=== PATIENT | female | born 1940 | race Caucasian/White ===

== ENCOUNTER 2016-08-03 11:27 | Observation (INO) | payer MEDICARE, BC ==
[2016-08-03 13:27] LABS: Hematocrit 39 % (35-47); Hemoglobin 12.9 g/dl (12.0-16.0); Mean Corpuscular HGB Conc 33 g/dl (31-36); Mean Corpuscular Hemoglobin 31 pg (27-31); Mean Corpuscular Volume 94 fL (80-97); Mean Platelet Volume 8 um3 (7.4-10.4); Red Blood Count 4.21 10^6/ul (4.0-5.4); Red Cell Distribution Width 15 % (10.5-15); White Blood Count 3.5 10^3/ul (3.5-10.8)
[2016-08-03 13:39] LABS: Albumin 3.6 g/dL (3.2-5.2); Calcium 8.4 mg/dL (8.6-10.3); EGFR African American 88.9 (>60); EGFR Non-African American 69.1 (>60); Globulin 2.5 g/dL (2-4); Magnesium 2.1 mg/dL (1.9-2.7); Potassium 4.3 mmol/L (3.5-5.0); Total Bilirubin 0.5 mg/dL (0.2-1.0); Total Protein 6.1 g/dL (6.4-8.9)
[2016-08-03 14:09] LABS: TSH (Thyroid Stimulating Horm) 2.35 mcIU/mL (0.34-5.60)
--- NOTE | 2016-08-03 14:35 | RAD ---
Indication: Syncope. Comparison: None. Technique: Sitting AP and lateral chest views. Report: Accounting for superimposed soft tissues and normal bronchovascular markings the lungs and pleural spaces are clear. Negative for pneumothorax. Cardiomegaly. Unremarkable central pulmonary vasculature and mediastinal contours. IMPRESSION: Cardiomegaly without evidence for pulmonary edema. No acute cardiopulmonary process evident.
[2016-08-03] MEDS ORDERED: Acetaminophen TAB* 325 MG PO PRN (16:35)
[2016-08-03 16:40] LABS: Urine Bilirubin Negative (Negative); Urine Glucose Negative (Negative); Urine Nitrite Negative (Negative)
[2016-08-03] MEDS ORDERED: Flecainide TAB* 100 MG PO SCH (18:00)
[2016-08-03] MEDS ORDERED: Latanoprost 0.005%* 2.5 ml BTL BOTH EYES SCH (18:00)
--- NOTE | 2016-08-03 18:49 | ED ---
Danielito Montaño SooYoung, scribed for Paulo Bernal MD on 08/03/16 at 1158 . Syncope/Near Syncope - HPI Summary HPI Summary: A 76 y/o F [facility] presents to ED after syncopal episode onset [employer]. Episode lasted approx. 1-2 minutes. Pt was singing at [employer], and she became diaphoretic. She sat down in the pew, and then passed out. When she came to she was dazed and her eyes were rolling back, according to her , She was laid down, and her pulse was slow. Denies pain, nausea, fever, pedal edema, sx prior to going to [employer]. Pt felt OK in the ambulance, states she feels fine in ED. She has had a productive cough and cold for the past five days. She is a non-smoker. Recent air travel from [place] this past week. Her notes a baseline low BP. Pert PMHx: afib. Is not on a blood thinner. - History Of Current Complaint Time Seen by Provider: 08/03/16 11:34 Hx Obtained From: Patient, Family/Criminal Judge - Onset/Duration: Sudden Onset, Lasting Minutes, Resolved Context: Witnessed, Loss Of Consciousness Alleviating Factor(s): Position Change - laying supine - Allergies/Home Medications Allergies/Adverse Reactions: Allergies Allergy/AdvReac Type Severity Reaction Status Date / Time No Known Allergies Allergy Verified 05/25/13 06:54 PMH/Surg Hx/FS Hx/Imm Hx Previously Healthy: Yes Cardiovascular History: Reports: Other Cardiovascular Problems/Disorders - ATRIAL FIB -ABLATION 10 YEARS AGO Sensory History: Reports: Hx Cataracts - RIGHT EYE, Hx Contacts or Glasses - GLASSES Denies: Hx Hearing Aid Opthamlomology History: Reports: Hx Cataracts - RIGHT EYE, Hx Contacts or Glasses - GLASSES - Cancer History Hx Chemotherapy: No Hx Radiation Therapy: No - Surgical History Surgery Procedure, Year, and Place: CATAR[place] [facility] [place]. [place]CT IN BREAST [place] [facility] [place] Hx Anesthesia Reactions: No Infectious Disease History: Denies: Traveled Outside the [place] in Last 30 Days - Family History Known Family History: Positive: Other - pos: Breast CA - Social History Occupation: Retired Lives: With Family Hx Substance Use: No Substance Use Type: Reports: None Hx Tobacco Use: No Review of Systems Positive: Skin Diaphoresis. Negative: Fever Positive: Other - pos: bradycardia Negative: Nausea Negative: Edema Positive: Syncope - 1-2 minutes All Other Systems Reviewed And Are Negative: Yes Physical Exam Triage Information Reviewed: Yes Vital Signs On Initial Exam: Initial Vitals BP 111/52 08/03/16 11:39 Vital Signs Reviewed: Yes Appearance: Positive: Well-Appearing, No Pain Distress Skin: Positive: Warm, Skin Color Reflects Adequate Perfusion, Dry Head/Face: Positive: Normal Head/Face Inspection Eyes: Positive: Normal ENT: Positive: Normal ENT inspection Neck: Positive: Supple, Nontender Respiratory/Lung Sounds: Positive: Breath Sounds Present, Other - pos: CRACKLES IN R LOWER LUNG FIELD Cardiovascular: Positive: Bradycardia Abdomen Description: Positive: Nontender, Soft Bowel Sounds: Positive: Present Musculoskeletal: Positive: Normal Neurological: Positive: Normal Psychiatric: Positive: Normal, Affect/Mood Appropriate Diagnostics - Vital Signs Vital Signs Temp Pulse Resp BP Pulse Ox 08/03/16 15:30 49 11 120/55 98 08/03/16 15:00 47 19 120/64 99 08/03/16 14:30 51 18 129/61 97 08/03/16 14:21 115/60 08/03/16 14:10 50 15 97 08/03/16 14:00 48 17 97 08/03/16 13:00 46 18 96 08/03/16 12:00 51 19 98/56 96 08/03/16 11:41 51 98 08/03/16 11:40 97 F 53 16 111/52 97 08/03/16 11:39 111/52 - Laboratory Lab Results: Lab Results 08/03/16 08/03/16 08/03/16 Range/Units 13:15 13:15 13:15 WBC 3.5 (3.5-10.8) 10^3/ul RBC 4.21 (4.0-5.4) 10^6/ul Hgb 12.9 (12.0-16.0) g/dl Hct 39 (35-47) % MCV 94 (80-97) fL MCH 31 (27-31) pg MCHC 33 (31-36) g/dl RDW 15 (10.5-15) % Plt Count 171 (150-450) 10^3/ul MPV 8 (7.4-10.4) um3 Neut % (Auto) 56.2 (38-83) % Lymph % (Auto) 32.4 (25-47) % [place] % (Auto) 10.4 H (1-9) % Eos % (Auto) 0.6 (0-6) % Baso % (Auto) 0.4 (0-2) % Absolute Neuts (auto) 2.0 (1.5-7.7) 10^3/ul Absolute Lymphs (auto) 1.1 (1.0-4.8) 10^3/ul Absolute Monos (auto) 0.4 (0-0.8) 10^3/ul Absolute Eos (auto) 0 (0-0.6) 10^3/ul Absolute Basos (auto) 0 (0-0.2) 10^3/ul Absolute Nucleated RBC 0.01 10^3/ul Nucleated RBC % 0.2 Sodium 136 (133-145) mmol/L Potassium 4.3 (3.5-5.0) mmol/L Chloride 105 (101-111) mmol/L Carbon Dioxide 24 (22-32) mmol/L Anion Gap 7 (2-11) mmol/L BUN 17 (6-24) mg/dL Creatinine 0.81 (0.51-0.95) mg/dL Est GFR ( Amer) 88.9 (>60) Est GFR (Non-Af Amer) 69.1 (>60) BUN/Creatinine Ratio 21.0 H (8-20) Glucose 95 (70-100) mg/dL Lactic Acid 0.9 (0.5-2.0) mmol/L Calcium 8.4 L (8.6-10.3) mg/dL Magnesium 2.1 (1.9-2.7) mg/dL Total Bilirubin 0.50 (0.2-1.0) mg/dL AST 30 (13-39) U/L ALT 23 (7-52) U/L Alkaline Phosphatase 66 (34-104) U/L Troponin I 0.00 (<0.04) ng/mL Total Protein 6.1 L (6.4-8.9) g/dL Albumin 3.6 (3.2-5.2) g/dL Globulin 2.5 (2-4) g/dL Albumin/Globulin Ratio 1.4 (1-3) TSH 2.35 (0.34-5.60) mcIU/mL Result Diagrams: 08/03/16 13:15 08/03/16 13:15 Lab Statement: Any lab studies that have been ordered have been reviewed, and results considered in the medical decision making process. - Radiology CXR Xray Interpretation: No Acute Changes - IMPRESSION: Cardiomegaly without evidence for pulmonary edema. No acute cardiopulmonary process evident. Radiology Interpretation Completed By: Radiologist - EKG 1203 EKG Rhythm: Sinus Bradycardia Re-Evaluation - Re-Evaluation 1 Re-Evaluation Time: 14:59 Change: Improved Comment: Discussing results with pt. Course/Dx Course Of Treatment: Ms. Waldron presented after a syncopal episode while singing in the choir today that sounded like a vagal episode to me. He W/U was negative however, she remained bradycardic here and is on flecanide so I consulted with Dr. Arrieta who recommende OBV. - Diagnoses Provider Diagnoses: syncope - Physician Notifications Discussed Care Of Patient With: 1512: Dr. Arrieta, cardiology, recommends pt be admitted. 1517: Dr. Serna, hospitalist, will admit Instructed by Provider To: Admit As Inpatient - Critical Care Time Critical Care Time: 30-74 min Discharge - Discharge Plan Condition: Stable Disposition: ADMITTED TO [facility] The documentation as recorded by the Danielito evans SooYoung accurately reflects the service I personally performed and the decisions made by me, Paulo Bernal MD.
[2016-08-03] MEDS: Heparin VIAL(*) 5000 UNITS/ML VIAL (FIVE THOUSAND) SUBCUT SCH (23:27)
[2016-08-03] MEDS: NS 0.9% 1000 ML* 1,000 ML IV SCH (23:27)
--- NOTE | 2016-08-04 01:45 | HP ---
HOSPITAL MEDICINE HISTORY AND PHYSICAL: DATE OF ADMISSION: 08/03/16 PRIMARY CARE PHYSICIAN: Dr. Darling ATTENDING PHYSICIAN: Dr. Yolanda Serna *(dictation provided by Louisa Gruber NP) CHIEF COMPLAINT: Syncope. HISTORY OF PRESENT ILLNESS: Ms. Waldron is a 76-year-old female with a past medical history of atrial fibrillation, on flecainide, who presents to the hospital today after a syncopal episode while at [employer]. Ms. Waldorn states that she returned from [place] via plane on late Thursday. She denies any pain to her calves or swelling or redness there. She stated that shortly after returning home, she developed a cold. She had itchy watery eyes. She has congestion, runny nose. No fevers, no chills, no nausea, no vomiting, no abdominal pain. Today, she states that she had a normal breakfast. While singing in [employer], she suddenly felt very sweaty and she felt that her vision was going foggy. She sat down on the bench and then became unconscious. She awoke with the members of the [employer] standing around her. She sat up and states that she felt very tired. She does remember EMS coming and bringing her to the hospital. In the emergency room, Ms. Waldron has some bradycardia, but she is in a sinus rhythm. Her vital signs are otherwise stable. Her labs are unremarkable. PAST MEDICAL HISTORY: 1. Atrial fibrillation with ablation x3. 2. History of breast duct removal, benign. 3. Cataract surgery bilaterally. MEDICATIONS: 1. [place]-3 fatty acids 1000 mg p.o. q.a.m. 2. Aspirin 81 mg p.o. daily. 3. Flecainide 50 mg p.o. q.p.m. and 100 mg p.o. q.a.m. 4. Latanoprost 0.005% one drop both eyes q.p.m. ALLERGIES: No known drug allergies. FAMILY HISTORY: The patient reports her mom related to leukemia at 86 and dad of heart problems at 84. SOCIAL HISTORY: No report of tobacco or drug use. The patient drinks 1 glass of wine on a daily basis. She states that her , David, will be the healthcare proxy. REVIEW OF SYSTEMS: A 14-point review of systems was completed with Ms. Waldron and all those not mentioned above were negative. PHYSICAL EXAMINATION GENERAL: Ms. Waldron is lying in the bed. She is in no acute distress. She is calm and cooperative to my examination. VITAL SIGNS: Temperature 97, heart rate 49, respiratory rate 11, O2 saturation 98% on room air, and blood pressure 121/55. LUNGS: Clear to auscultation bilaterally with no accessory muscle use and good aeration. HEART: S1, S2. No murmur, rub, or gallop, and regular. ABDOMEN: Soft, nontender with bowel sounds positive x4. EXTREMITIES: No cyanosis or edema. NEURO: She is alert, she is oriented x3, she moves all extremities equally. There is no facial asymmetry or focal weakness. Extraocular movements are intact. SKIN: Intact. DIAGNOSTIC STUDIES/LAB DATA: WBC 3.5, hemoglobin 12.9, hematocrit 39, and platelet count 171. Sodium 136, potassium 4.3, chloride 105, serum bicarbonate 24, BUN 17, creatinine 0.81, glucose 95, magnesium 2.1. Urine shows no evidence of infection. Chest x-ray shows no acute process. EKG shows sinus rhythm with a heart rate of 50. ASSESSMENT AND PLAN: Ms. Waldron is a 76-year-old female with a past medical history significant for atrial fibrillation, on flecainide, who presents today to the hospital with complaint of syncope while at [employer] today. Our recommendations are for observation in the hospital for the followin. Syncope: The patient does report a cold which is described as a typical rhinovirus. She describes a vaso vagal-type syncopal episode with prodrome of sweating and blurry vision. She had no altered mental status when she awoke suggestive of a postictal state. I suspect dehydration in the setting of viral illness, but we will rule her out for an arrhythmia. I note that she is mildly bradycardic. Plan for 1 liter of IVF overnight and check of orthostatic vitals. Flecainide itself does not cause bradycardia, and it is actually more likely to cause tachycardia. Plan for telemetry monitoring overnight. The patient has had multiple echocardiograms in her life. Based on her history of atrial fibrillation, I do not think an additional echo today would be revealing. 2. Atrial fibrillation: Continue flecainide. 3. DVT prophylaxis: Heparin subcu. 4. Disposition: To telemetry floor. TIME SPENT: Approximately 60 minutes was spent in the admission of this patient , more than half of the time was spent with the patient at the bedside reviewing the events leading up to this hospitalization, performing the physical examination, and reviewing my plan of care. LOUISA GRUBER NP CC: Dr. Darling* [id number]/[facility] #: [id number] ANGELICA
[2016-08-04] MEDS: Heparin VIAL(*) 5000 UNITS/ML VIAL (FIVE THOUSAND) SUBCUT SCH ×2 (06:01→14:44)
[2016-08-04] MEDS ORDERED: Aspirin EC Low Dose* 81 MG TAB.EC PO SCH (09:00)
[2016-08-04] MEDS ORDERED: Flecainide TAB* 100 MG PO SCH (09:00)
[2016-08-04] MEDS: NS 0.9% 1000 ML* 1,000 ML IV SCH (09:12)
--- NOTE | 2016-08-04 10:12 | CONS ---
CARDIOLOGY CONSULTATION: DATE OF CONSULT: 08/04/16 INDICATION FOR CONSULTATION: Syncope. HISTORY OF PRESENT ILLNESS: The patient is a 76-year-old woman who is known to me from my outpatient clinic who has a history of atrial fibrillation flutter. In speaking with the patient, the patient states that she had come back from [place] last week and started developing upper respiratory infection symptoms late last week; she had a cough, runny nose. She denied any fevers or chills. The patient was in [employer] yesterday; the patient was singing in a choir. She sat down because she was feeling slightly lightheaded, and then woke up on the floor with people around her. She denied any prodrome other than feeling lightheaded. She denied any palpitations. She denied any heart racing. She denied any chest pain. The patient was brought to the emergency room. In the emergency room, the patient was in sinus bradycardia at 50 beats per minute overnight on telemetry; she had no arrhythmias except for her sinus bradycardia. PAST MEDICAL HISTORY: Significant for atrial fibrillation. She has had an A- flutter ablation in the past. She has a history of benign cystic breast disease. Cataract surgery bilaterally. OUTPATIENT MEDICATIONS: 1. Flecainide 100 mg in the morning, 50 mg in the evening. 2. Aspirin 81 mg a day. 3. Multiple eye drops. 4. [place]-3 fatty acids. ALLERGIES: No known drug allergies. FAMILY HISTORY: Mother at 86 of leukemia. SOCIAL HISTORY: She is . She denies tobacco or alcohol use. She is retired. REVIEW OF SYSTEMS: Negative for fevers and chills. Negative for changes in bowel or bladder habits. Negative in change in weight. PHYSICAL EXAMINATION: Height is 5 feet 9 inches, weight is 190 pounds. Heart rate 50, blood pressure 132/63, temperature 97.4, oxygen saturation 98% on room air. Sclerae anicteric. Oropharynx is pink without erythema. Carotids are 2+ without bruits. JVD is normal. Thyroid is normal. Cardiac Exam: S1, S2 without any murmurs, rubs, or gallops. Lungs are clear to auscultation bilaterally. There is no dullness to percussion. Abdomen is soft, nontender, nondistended with normoactive bowel sounds. Extremities show no edema. She has 2+ pulses throughout. The patient is awake, alert and oriented. She moves all 4 extremities equally. DIAGNOSTIC STUDIES/LAB DATA: CBC within normal limits. Chemistry is within normal limits. TSH 2.3. Troponins are negative x2. EKG demonstrates sinus bradycardia, otherwise unremarkable. IMPRESSION: This is a 76-year-old female with a history of atrial arrhythmias who was admitted to the hospital with a syncopal episode. My question is whether she had just a vasovagal syncope from her viral syndrome and hypotension , or did she have some sort of arrhythmia. The patient does have sinus bradycardia at rest. She could have had an episode of bradycardia that caused her syncopal episode. She also could have had a ventricular arrhythmia associated with her flecainide , although she is at low risk for antiarrhythmic-induced arrhythmias. For now my recommendation is that the patient undergo an echocardiogram just to revaluate LV function in light of her flecainide therapy. I have also recommended that the patient have an implantable event monitor for long- term monitoring of her heart rhythm given the fact that she has sinus bradycardia at rest and is on flecainide. I will see the patient in followup as an outpatient. CC: Dr. [place], [place].* [id number]/[facility] #: [id number] MTDConsuelo
--- NOTE | 2016-08-04 11:09 | ECHO ---
Patient: GA AGARWAL [facility] Rec#: [id number] : 1940 Date: 08/04/2016 Age: 76y Height: 175.26 cm / 69.0 in Weight: 86.18 kg / 189.9 lbs Sex: F BSA: 2.02 Room#: 447 Admit Date#: 08/03/2016 Type: Inpatient Referring: Benito Farrar MD Reading: Benito Farrar MD Crew Boat Operator: Ara Pino FREDIS CC: Mc Valadez MD Transthoracic Echocardiogram Indication: Syncope BP: 146/69 HR: 52 Rhythm: Bradycardia Findings History: A-fib with Flecanide rx, syncope. Technical Comments: The study quality is good. Completed at 1055. Left Ventricle: The left ventricular chamber size is normal. Moderate concentric left ventricular hypertrophy is observed. Global left ventricular wall motion and contractility are within normal limits. There is normal left ventricular systolic function. The estimated ejection fraction is 50-55%. Normal left ventricular diastolic filling is observed. Left Atrium: The left atrium is normal in size. Right Ventricle: Moderator Band present. The right ventricular cavity size is normal. The right ventricular global systolic function is normal. Right Atrium: The right atrial cavity size is normal. Aortic Valve: The aortic valve is trileaflet. The aortic valve leaflets are mildly thickened. There is mild to moderate aortic regurgitation. There is no evidence of aortic stenosis. Mitral Valve: The mitral valve leaflets are mildly thickened. There is mild mitral regurgitation. There is no evidence of mitral stenosis. Tricuspid Valve: The tricuspid valve leaflets are normal. There is trace to mild tricuspid regurgitation. No pulmonary hypertension is noted. There is no tricuspid stenosis. Pulmonic Valve: The pulmonic valve appears normal. There is mild to moderate pulmonic regurgitation. There is no pulmonic stenosis. Pericardium: The pericardium appears normal. A pericardial fat pad is visualized. Aorta: There is no dilatation of the ascending aorta. There is no dilatation of the aortic arch. There is no dilation of the aortic root. Pulmonary Artery: The main pulmonary artery appears normal. Venous: The inferior vena cava appears normal in size. There is a greater than 50% respiratory change in the inferior vena cava dimension. Summary: There are no significant changes when compared to the previous study done on 03/05/15 Conclusions Moderate concentric left ventricular hypertrophy is observed. Global left ventricular wall motion and contractility are within normal limits. There is normal left ventricular systolic function. The estimated ejection fraction is 50-55%. The right ventricular global systolic function is normal. There is mild to moderate aortic regurgitation. There is mild mitral regurgitation. There is trace to mild tricuspid regurgitation. No pulmonary hypertension is noted. The pericardium appears normal. There are no significant changes when compared to the previous study done on 03/05/15 Measurements Name Value Normal Range RVIDd (AP) 2D 3.1 cm (0.9 - 2.6) RVDdMajor (2D) 3.7 cm (2.2 - 4.4) RAd ISD 4CH 5.8 cm (3.4 - 4.9) RA (A4C)W 4.3 cm (2.9 - 4.6) IVSd (2D) 1.4 cm (0.6 - 1) LVPWd (2D) 1.2 cm (0.6 - 1) LVIDd (2D) 3.9 cm (3.6 - 5.4) LVIDs (2D) 2.8 cm - LV FS (2D) 28 % (25 - 45) Aortic Annulus 1.8 cm (1.4 - 2.6) Ao root diameter (2D) 3.1 cm (2.1 - 3.5) Ascending Ao 2.9 cm (2.1 - 3.4) Aortic arch 2.4 cm (1.8 - 3.4) Descending Ao 0.4 cm - LA dimension (AP) 2D 3.1 cm (2.3 - 3.8) LAd ISD 4CH 6.1 cm (2.9 - 5.3) LA ISD 4CH W 4.9 cm (2.5 - 4.5) Name Value Normal Range LA ESV SP 4CH (A/L) 64 ml - LA ESV SP 2CH (A/L) 66 ml - LA ESV BP (A/L) 69 ml - LA ESV BP (A/L) index 34.12 ml/m2 - LA ESV SP 4CH (MOD) 57 ml - LA ESV SP 2CH (MOD) 62 ml - Name Value Normal Range MV E-wave Vmax 0.8 m/sec - MV deceleration time 206 msec - MV A-wave Vmax 0.6 m/sec - MV E:A ratio 1.32 ratio - LV septal e' Vmax 0.08 m/sec - LV lateral e' Vmax 0.09 m/sec - LV E:e' septal ratio 10 ratio - LV E:e' lateral ratio 8.89 ratio - Name Value Normal Range AV Vmax 1.5 m/sec - AV VTI 36.3 cm - AV peak gradient 8.92 mmHg - AV mean gradient 3.8 mmHg - LVOT Vmax 1 m/sec - LVOT VTI 24 cm - LVOT peak gradient 4 mmHg - LVOT mean gradient 1.74 mmHg - AR PHT 669 msec - AR peak gradient 77.53 mmHg - Name Value Normal Range TR Vmax 2.3 m/sec - TR peak gradient 21 mmHg - RAP 3 mmHg - RVSP 24 mmHg - IVC diameter 1.7 cm - Name Value Normal Range PV Vmax 0.8 m/sec - PV peak gradient 2.39 mmHg -
[2016-08-04] MEDS ORDERED: Lidocaine 1% INJ* 10 MG/ML 30 ML SDV ONE (11:20)
[2016-08-04] MEDS ORDERED: Cephalexin CAP* 500 MG PO ONE (11:22)
--- NOTE | 2016-08-04 12:39 | PN ---
Subjective Date of Service: 08/04/16 Interval History: Patient seen and examined at bedside. She denies any further syncopal events, CP , SOB, abd pain, n/v. She has ambulated this morning and felt steady. Her is at bedside. No acute concerns. Patient was seen in consult by her primary instrument designer, Dr. Farrar, who has also inserted an implantable event monitor; he will see her in follow-up next week. Telemetry: Sinus bradycardia with PVCs 50s-60s Family History: Unchanged from Admission Social History: Unchanged from Admission Past Medical History: Unchanged from Admission Objective Active Medications: Acetaminophen (Tylenol Tab*) 650 mg PO Q6H PRN PRN Reason: PAIN Aspirin (Aspirin Ec Low Dose*) 81 mg PO DAILY [facility] Last Admin: 08/04/16 09:13 Dose: 81 mg Flecainide Acetate (Tambocor Tab*) 50 mg PO QPM [facility] Last Admin: 08/03/16 18:50 Dose: 50 mg Flecainide Acetate (Tambocor Tab*) 100 mg PO QAM [facility] Last Admin: 08/04/16 09:13 Dose: 100 mg Heparin Sodium (Porcine) (Heparin Vial(*)) 5,000 units SUBCUT Q8HR [facility] Last Admin: 08/04/16 06:01 Dose: 5,000 units Sodium Chloride (Ns 0.9% 1000 Ml*) 1,000 mls @ 125 mls/hr IV PER RATE [facility] Last Admin: 08/04/16 09:12 Dose: 125 mls/hr Latanoprost (Xalatan 0.005%*) 1 drop BOTH EYES QPM [facility] Last Admin: 08/03/16 18:50 Dose: 1 drop Vital Signs 08/03/16 08/03/16 08/03/16 15:57 16:09 16:12 Temperature Pulse Rate 50 51 Respiratory 14 15 Rate Blood Pressure 132/54 (mmHg) O2 Sat by Pulse 97 97 Oximetry 08/03/16 08/03/16 08/03/16 16:30 17:00 17:59 Temperature 97.4 F Pulse Rate 52 49 50 Respiratory 18 11 16 Rate Blood Pressure 121/55 132/63 (mmHg) O2 Sat by Pulse 98 98 98 Oximetry 08/03/16 08/04/16 08/04/16 19:25 00:19 03:50 Temperature 98.0 F 98.6 F Pulse Rate 53 50 54 Respiratory 18 Rate Blood Pressure 121/56 118/55 123/62 (mmHg) O2 Sat by Pulse 99 96 96 Oximetry 08/04/16 07:20 Temperature 98.3 F Pulse Rate 51 Respiratory 16 Rate Blood Pressure 146/69 (mmHg) O2 Sat by Pulse 94 Oximetry Oxygen Devices in Use Now: None Appearance: Female patient, sitting up in bed, in NAD Eyes: PERRLA Ears/Nose/Mouth/Throat: Clear Oropharnyx, Mucous Membranes Moist Neck: NL Appearance and Movements; NL JVP Respiratory: Symmetrical Chest Expansion and Respiratory Effort, Clear to Auscultation Cardiovascular: NL Sounds; No Murmurs; No JVD, RRR Abdominal: NL Sounds; No Tenderness; No Distention Extremities: No Edema Skin: No Rash or Ulcers Neurological: Alert and Oriented x 3 Lines/Tubes/Other Access: Clean, Dry and Intact Peripheral IV Nutrition: Taking PO's Result Diagrams: 08/03/16 13:15 08/03/16 13:15 Additional Lab and Data: Lab Results 08/03/16 08/03/16 08/03/16 Range/Units 13:15 13:15 13:15 WBC 3.5 (3.5-10.8) 10^3/ul RBC 4.21 (4.0-5.4) 10^6/ul Hgb 12.9 (12.0-16.0) g/dl Hct 39 (35-47) % MCV 94 (80-97) fL MCH 31 (27-31) pg MCHC 33 (31-36) g/dl RDW 15 (10.5-15) % Plt Count 171 (150-450) 10^3/ul MPV 8 (7.4-10.4) um3 Neut % (Auto) 56.2 (38-83) % Lymph % (Auto) 32.4 (25-47) % Beltrami % (Auto) 10.4 H (1-9) % Eos % (Auto) 0.6 (0-6) % Baso % (Auto) 0.4 (0-2) % Absolute Neuts (auto) 2.0 (1.5-7.7) 10^3/ul Absolute Lymphs (auto) 1.1 (1.0-4.8) 10^3/ul Absolute Monos (auto) 0.4 (0-0.8) 10^3/ul Absolute Eos (auto) 0 (0-0.6) 10^3/ul Absolute Basos (auto) 0 (0-0.2) 10^3/ul Absolute Nucleated RBC 0.01 10^3/ul Nucleated RBC % 0.2 Sodium 136 (133-145) mmol/L Potassium 4.3 (3.5-5.0) mmol/L Chloride 105 (101-111) mmol/L Carbon Dioxide 24 (22-32) mmol/L Anion Gap 7 (2-11) mmol/L BUN 17 (6-24) mg/dL Creatinine 0.81 (0.51-0.95) mg/dL Est GFR ( Amer) 88.9 (>60) Est GFR (Non-Af Amer) 69.1 (>60) BUN/Creatinine Ratio 21.0 H (8-20) Glucose 95 (70-100) mg/dL Lactic Acid 0.9 (0.5-2.0) mmol/L Calcium 8.4 L (8.6-10.3) mg/dL Magnesium 2.1 (1.9-2.7) mg/dL Total Bilirubin 0.50 (0.2-1.0) mg/dL AST 30 (13-39) U/L ALT 23 (7-52) U/L Alkaline Phosphatase 66 (34-104) U/L Troponin I 0.00 (<0.04) ng/mL Total Protein 6.1 L (6.4-8.9) g/dL Albumin 3.6 (3.2-5.2) g/dL Globulin 2.5 (2-4) g/dL Albumin/Globulin Ratio 1.4 (1-3) TSH 2.35 (0.34-5.60) mcIU/mL Assess/Plan/Problems-Billing Assessment: Ms. Waldron is a 76 yo female with a PMH of atrial fibrillation/flutter who presented to the ED on 08/03/16 following a syncopal episode. - Patient Problems (1) Syncope Code(s): R55 - SYNCOPE AND COLLAPSE Comment: S/p syncopal episode at home Unclear etiology - dehydration/viral illness vs arrhythmia vs bradycardia Appreciate cardiology input. Echo shows no wall motion abnormalities, EF 50-55%. Patient s/p implantable event monitor; follow-up with cardiology as previously scheduled. (2) Atrial fibrillation and flutter Code(s): I48.91 - UNSPECIFIED ATRIAL FIBRILLATION; I48.92 - UNSPECIFIED ATRIAL FLUTTER Comment: In sinus rhythm, continue flecainide. (3) DVT prophylaxis Code(s): QHB1216 - Comment: SQ heparin Status and Disposition: OBV admit. D/c to home.
[2016-08-04 13:22] VITALS: BP 138/78
--- NOTE | 2016-08-04 13:28 | CARD ---
CC: Dr. Valadez in [place], [place] EVENT MONITOR IMPLANTATION REPORT: DATE OF PROCEDURE: 08/04/16 PROCEDURE: Event monitor implantation. INDICATION: Syncope, bradycardia. The patient is a 76-year-old woman with a history of atrial fibrillation, who was admitted to the [facility] with syncope. The patient has flecainide for antiarrhythmic medication. In the hospital, th e patient did show bradycardia down to 45 beats per minute, but no significant pauses or no other ar rhythmias. Long- term event monitor was recommended. DESCRIPTION OF PROCEDURE: The patient was brought to the procedure room. Her anterior chest was pr epped and draped in the usual fashion. 1% lidocaine was used for local anesthesia. The event monit or was injected subcutaneously without difficulty. The event monitor is a [employer] LINQ serial #[id number]. The device had an R-wave sensitivity of 0.33 millivolts. The patient tolerated the proce dure well with no complications. The patient will be seen in my office in followup. [id number]/[facility] #: [id number]
--- NOTE | 2016-08-07 10:04 | DS ---
DISCHARGE SUMMARY: DATE OF ADMISSION: 08/03/16 DATE OF DISCHARGE: 08/04/16. PROVIDER: Per Garcia NP ATTENDING PHYSICIAN: Dr. Patty Gold *(as dictated by Per Garcia NP). CONSULTING PHYSICIAN: Dr. Benito Farrar, cardiology. PRIMARY CARE PHYSICIAN: Dr. Darling. PRIMARY DISCHARGE DIAGNOSIS: Syncope. SECONDARY DISCHARGE DIAGNOSES: 1. Atrial fibrillation with ablation x3. 2. History of breast duct removal, benign. 3. Cataract surgery bilaterally. MEDICATIONS AT DISCHARGE: 1. Cashiers-3 fatty acid 1000 mg q.a.m. 2. Latanoprost eye drops one drop to both eyes q.p.m. 3. Flecainide 100 mg q.a.m. and 50 mg q.p.m. 4. Aspirin 81 mg daily. HOSPITAL TESTING DURING THIS ADMISSION: Transthoracic echocardiogram: Conclusions: Moderate concentric left ventricular hypertrophy is observed. Global left ventricular wall motion and contractility are within normal limits. There is normal left ventricular diastolic function. The estimated ejection fraction is 50- 55%. The right ventricular global systolic function is normal. There is mild-to- moderate aortic regurgitation. There is mild mitral regurgitation. There is trace to mild tricuspid regurgitation. No pulmonary hypertension is noted. The pericardium appears normal. There are no significant changes when compared to the previous study done on 03/05/15. HOSPITAL COURSE OF STAY: For full details, please refer to the H and P provided by Louisa Gruber NP on 08/03/16. In summary, Ms. Waldron is a 76-year- old female with a past medical history significant for atrial fibrillation who presented to the hospital after a syncopal episode while at [facility]. She also endorses a recent viral illness with symptoms that included itchy watery eyes, congestion, and runny nose. She denied any fever or chills, nausea, vomiting or abdominal pain. She did go to [facility] the morning of admission, and was singing when she felt diaphoretic and noted changes to her vision. She sat down and lost consciousness. In the ER, she was noted to have some bradycardia , but was in sinus rhythm. No further syncopal episodes were noted, and her telemetry during her admission showed mostly sinus rhythm with some PVCs. The patient was seen in consultation by Dr. Farrar who is also her primary band splitter. He expressed concern that this may represent an arrhythmia or an episode of bradycardia that may have contributed to her syncopal episode. Dr. Farrar did perform an event monitor implantation for long-term monitoring of her heart rhythm, given the fact that she has sinus bradycardia at rest and is on flecainide. He will follow up with her next week on the , and instructions were provided by the cardiology department as to the care and follow up of this device. Prior to discharge, the patient was able to demonstrate safe ambulation, and as to p.o. intake. No further episodes or concerns. CONCERNS AT DISCHARGE: Ms. Waldron is discharged to home on 08/04/16 with a plan to follow up with her PCP as well as Dr. Farrar on August 04, 2016. DIET: Heart-healthy diet. ACTIVITY: As tolerated. CONDITION: Stable. DISPOSITION: To home. TIME SPENT: Time spent on this discharge was approximately 40 minutes. Again, this is only a brief summary of the patient's hospital course of stay. For full details, please refer to the full medical record. If you have any further questions or need further assistance, please feel free to contact me at . PER GARCIA NP CC: Dr. Darling* [id number]/[facility] #: [id number] ANGELICA
== END 2016-08-04 14:10 | disposition home or self-care (01) ==
LOC: ED 11:27 → MEDTELE 15:45
PROVIDERS: ADMIT Hospitalist; ATTEND Internal Medicine
DX: R55 Syncope and collapse (principal); I48.91 Unspecified atrial fibrillation; Z79.01 Long term (current) use of anticoagulants; Z85.3 Personal history of malignant neoplasm of breast; Z79.899 Other long term (current) drug therapy; Z79.82 Long term (current) use of aspirin; R00.0 Tachycardia, unspecified; I45.10 Unspecified right bundle-branch block
CPT/HCPCS: 33282; 36415; 71020; 80053; 81003; 83605; 83735; 84443; 84484; 85025; 93005; 99291; A9270-GY; C1764; G0378; J1644

== ENCOUNTER 2017-05-09 14:30 | Emergency (ER) | payer MEDICARE, OTHER ==
[2017-05-09 17:09] VITALS: BP 149/75
--- NOTE | 2017-05-09 17:35 | RAD ---
Indication: Cough. 2 views the chest including dual energy PA views demonstrate no mediastinal shift. Heart is of normal size and configuration. Lung martin are clear. IMPRESSION: No active cardiopulmonary disease is noted.
--- NOTE | 2017-05-09 20:44 | UC ---
Damian Montaño Thomas, scribed for Mark Lobo MD on 05/09/17 at 1632 . Respiratory Complaint HPI - HPI Summary HPI Summary: The patient is a 77 year old female presenting to Urgent Care complaining of cough for the last three weeks. The cough is productive. She has been having coughing fits. Patient additionally complains of nasal discharge. Patient denies fevers and sore throat. - History of Current Complaint Chief Complaint: UCRespiratory Stated Complaint: COUGH SINUS ISSUE Time Seen by Provider: 05/09/17 15:58 Hx Obtained From: Patient Onset/Duration: Lasting Weeks - 3, Still Present Timing: Intermittent Episodes Severity Currently: Moderate Character: Cough: Productive Aggravating Factors: Nothing Alleviating Factors: Nothing Associated Signs And Symptoms: Positive: Nasal Congestion. Negative: Fever - Allergies/Home Medications Allergies/Adverse Reactions: Allergies Allergy/AdvReac Type Severity Reaction Status Date / Time No Known Allergies Allergy Verified 05/09/17 15:09 PMH/Surg Hx/FS Hx/Imm Hx Previously Healthy: No - A-Fib, cataracts - Surgical History Surgical History: Yes Surgery Procedure, Year, and Place: CATARACT LEFT EYE [facility] [place] 1997. LEFT DUCT IN BREAST REMOVED [facility] [place] 1989 - Family History Known Family History: Positive: Other - pos: Breast CA - Social History Alcohol Use: Daily Alcohol Amount: 1 glass of wine Substance Use Type: None Smoking Status (MU): Never Smoked Tobacco - Immunization History Most Recent Influenza Vaccination: 2017 Most Recent Pneumonia Vaccination: 2014 Review of Systems ENT: Nasal Discharge Respiratory: Cough Is Patient Immunocompromised?: No All Other Systems Reviewed And Are Negative: Yes Physical Exam Triage Information Reviewed: Yes Vital Signs: Initial Vital Signs Temp 98.5 F 05/09/17 15:05 Pulse 80 05/09/17 15:05 Resp 14 05/09/17 15:05 BP 144/62 05/09/17 15:05 Pulse Ox 98 05/09/17 15:05 Vital Signs Reviewed: Yes - Additional Comments VITAL SIGNS: Reviewed. GENERAL: Patient is a well-developed and nourished female who is lying comfortable in the stretcher. Patient is not in any acute respiratory distress. HEAD AND FACE: Normocephalic EYES: PERRLA, EOMI x 2. EARS: Hearing grossly intact. MOUTH: Oropharynx within normal limits. NECK: Supple, trachea is midline, no adenopathy, no JVD, no carotid bruit. CHEST: Symmetric, no tenderness at palpation LUNGS: Clear to auscultation bilaterally. No wheezing or crackles. CVS: Regular rate and rhythm, S1 and S2 present, no murmurs or gallops appreciated. ABDOMEN: Soft, non-tender. Bowel sounds are normal. No abdominal abnormal pulsations. EXTREMITIES: Full ROM in all major joints, no edema, no cyanosis or clubbing. NEURO: Alert and oriented x 3. No acute neurological deficits. Speech is normal and follows commands. SKIN: Dry and warm UC Diagnostic Evaluation - Laboratory O2 Sat by Pulse Oximetry: 98 Diagnostic Studies Comment: CXR. Interpreted by radiologist. Impression: "No active cardiopulmonary disease is noted." Dr. Lobo has reviewed this report. Respiratory Course/Dx - Course Course Of Treatment: The patient is a 77 year old female presenting to Urgent Care complaining of cough for the last three weeks. The cough is productive. She has been having coughing fits. Patient additionally complains of nasal discharge. Patient denies fevers and sore throat. She has a normal physical exam. CXR shows no acute process evident. The patient is diagnosed with bronchitis. The patient will be discharged home and instructed to follow up with primary care. The patient is prescribed Tessalon and Doxycycline. - Differential Dx/Diagnosis Differential Diagnosis/HQI/PQRI: Asthma, Bronchitis, Influenza, Laryngitis, Lower Resp Infection, Sinusitis Provider Diagnoses: Bronchitis Discharge - Discharge Plan Condition: Stable Disposition: HOME Prescriptions: Benzonatate CAP* [Tessalon 100 MG CAP*] 100 mg PO TID PRN #9 cap PRN Reason: Cough DOXYcycline CAP(*) [DOXYcycline 100MG CAP(*)] 100 mg PO DAILY #20 cap Patient Education Materials: Acute Bronchitis (ED) Referrals: Mc Valadez MD [Primary Care Provider] - 3 Days Additional Instructions: Follow up with your primary care physician in 3 days. Return to urgent care for any new or worsening symptoms. The documentation as recorded by the Damian evans Thomas accurately reflects the service I personally performed and the decisions made by Yamil hdez Walter, MD.
== END 2017-05-09 17:13 | disposition home or self-care (01) ==
LOC: UCEAST 14:30
DX: J40 Bronchitis, not specified as acute or chronic (principal)
CPT/HCPCS: 71020; 99212; G0463

== ENCOUNTER 2017-06-08 11:21 | Observation (INO) | payer MEDICARE, OTHER ==
[2017-06-08] MEDS ORDERED: Diazepam TAB(*) 5 MG ONE (11:55)
[2017-06-08] MEDS ORDERED: Midazolam* 1 MG/ML 10 ML VIAL (10 MG) ONE (12:49)
[2017-06-08] MEDS ORDERED: fentaNYL* 50 MCG/ML 2 ML VIAL (100 MCG VIAL) ONE (12:49)
[2017-06-08] MEDS ORDERED: Lidocaine 1% INJ* 10 MG/ML 30 ML SDV ONE (12:49)
[2017-06-08] MEDS ORDERED: ceFAZolin 2 GM PREMIX (*) 2 GM/50 ML BAG IVPB ONE (13:00)
[2017-06-08] MEDS ORDERED: ceFAZolin VIAL 1 GM in NS *SYRINGE * * 10 ML ONE (13:00)
[2017-06-08] MEDS ORDERED: Acetaminophen TAB* 325 MG PO PRN (14:24)
--- NOTE | 2017-06-08 15:40 | RAD ---
INDICATION: Device implant COMPARISON: June 09, 2016 TECHNIQUE: An AP portable view obtained at 1455 hours is submitted. FINDINGS: Bones/Soft Tissues: There are no acute bony findings. There is interval placement of a left-sided cardiac pacemaker Cardiomediastinal: The cardiomediastinal silhouette is normal. Lungs: Examination is expiratory with vascular crowding. There is mild basilar atelectasis and a small left-sided pleural effusion is not excluded There is no pneumothorax. Pleura: No right-sided effusion. Other: None IMPRESSION: INTERVAL PLACEMENT OF LEFT-SIDED CARDIAC PACEMAKER. NO PNEUMOTHORAX. HYPOVENTILATION LUNG BASES PERHAPS WITH A SMALL LEFT-SIDED EFFUSION
[2017-06-08] MEDS ORDERED: Latanoprost 0.005%* 2.5 ml BTL BOTH EYES SCH (18:00)
[2017-06-08] MEDS: ceFAZolin 1 GM in Dextrose (*) 1 GM/50 ML BAG IVPB SCH (19:41)
[2017-06-09] MEDS: oxyCODONE/Acetamin 5/325 MG* TAB PO PRN ×2 (00:02→09:21)
[2017-06-09] MEDS: ceFAZolin 1 GM in Dextrose (*) 1 GM/50 ML BAG IVPB SCH ×2 (02:17→09:52)
[2017-06-09 07:28] VITALS: BP 113/71
--- NOTE | 2017-06-09 08:54 | RAD ---
INDICATION: Post cardiac pacemaker placement. COMPARISON: June 08, 2017 TECHNIQUE: Dual energy PA and routine lateral views of the chest were obtained. REPORT: Elevated lung volumes and both diffuse mild prominence of the interstitial markings and patchy rarefaction of the mid to upper lung zone interstitial markings. Nipple shadow noted at the LEFT lung base on the PA view based on correlation with the lateral view without concern. No focal pulmonary lesion, compelling alveolar consolidation, pleural effusion, pneumothorax. Upper normal heart size with RIGHT atrial and RIGHT ventricular level pacemaker leads. Unremarkable central pulmonary vasculature and mediastinal contours. IMPRESSION: 1. Negative for pneumothorax or pulmonary edema post dual chamber cardiac pacemaker placement. 2. Stigmata of potential chronic obstructive pulmonary disease.
[2017-06-09] MEDS ORDERED: Aspirin EC Low Dose* 81 MG TAB.EC PO SCH (09:00)
[2017-06-09] MEDS ORDERED: Flecainide TAB* 100 MG PO SCH (09:00)
--- NOTE | 2017-06-09 18:09 | OP ---
DATE OF OPERATION: 06/08/17 - ROOM #450 DATE OF : 44 SURGEON: Benito Farrar MD ANESTHESIA: Local anesthesia with conscious sedation. PRE-OP DIAGNOSES: Second-degree heart block and syncope. POST-OP DIAGNOSES: Second-degree heart block and syncope. OPERATIVE PROCEDURE: Dual-chamber pacemaker implantation. INDICATIONS: The patient is a 77-year-old female who had a significant syncopal episode this past September. An event monitor was implanted for continuous monitoring of her cardiac arrhythmia. The patient had a number of episodes of second-degree heart block with heart rate down to 30 beats per minute. Permanent pacemaker was recommended. ESTIMATED BLOOD LOSS: Nil. COMPLICATIONS: None. DESCRIPTION OF PROCEDURE: The patient was brought to the procedure room in a fasting state. Informed consent had been obtained prior to the procedure. All labs had been reviewed. The patient was placed supine on the procedure table. The left deltopectoral area was cleaned and draped in the usual fashion. 1% lidocaine was used for local anesthesia. Using ultrasound guidance, the axillary vein was entered by a modified Seldinger technique and a guidewire was placed. A second guidewire was placed in the same technique. A 3.5-cm incision was made in the pectoral area, blunt dissection was carried down to the pectoral fascia and a small pocket was fashioned for the pacemaker. Over the first guidewire, a 7-Mohawk sheath introducer was placed through which a right ventricular lead was advanced to the RV apex. The right ventricular lead was a Medtronic, model 5076, serial number [id number]. It had an R-wave sensitivity of 9.8, impedance 1016 ohms, threshold 0.8 volt at 0.5 milliseconds. The ventricular lead was sutured to the pectoral fascia using 0 silk. Over the second guidewire, a 7-Mohawk sheath introducer was placed through which a right atrial lead was advanced to the high right atrium. The atrial lead was a Medtronic model 5076, serial number [id number]. It had a P- wave sensitivity of 7, impedance 1122 ohms, threshold 1 volt at 0.5 milliseconds. The atrial lead was then sutured to the pectoral fascia using 0 silk. The pocket was flushed with antibiotic-infused normal saline and a generator was attached appropriately to the atrial and ventricular leads. The generator was a Medtronic model A2DR01, serial number [id number]. The device was placed into the pocket. The surgical incision was closed in 3 layers. The subcutaneous tissue was closed with 2-0 and 3-0 absorbable suture. The skin was closed with marcos. The patient was returned to the holding area in stable condition. [id number]/[facility] #: [id number] MTDD
--- NOTE | 2017-06-09 23:54 | DS ---
CC: Dr. Darling in [place].* DISCHARGE SUMMARY: DATE OF ADMISSION: 06/08/17 DATE OF DISCHARGE: 06/09/17 INDICATIONS FOR ADMISSION: Dual-chamber pacemaker implantation. Please see admission history and physical for details of her presentation. HISTORY: The patient is a 77-year-old female with a history of supraventricular tachycardia who had a significant syncopal episode this past year. An event monitor was placed and has been followed closely. The patient' s event monitor showed significant episodes of 2:1 heart block with the heart rates down to 30 and a permanent pacemaker was recommended. SUMMARY OF HOSPITAL COURSE: The patient was admitted to the hospital. She underwent dual-chamber pacemaker implantation. She had a Medtronic model A2DR01. It is an MRI compatible device. The patient was observed overnight with no complications. This morning, the patient's pacemaker was functioning normally. Her chest x-ray is stable. She is afebrile. The patient is awake, alert, and oriented. She moves all 4 extremities equally. Her pacemaker site has minimal ecchymosis, no hematoma, no erythema. The dressing was changed. DISPOSITION: The patient will be discharged home. DISCHARGE MEDICATIONS: 1. Flecainide 100 mg in the morning and 50 mg in the evening. 2. Fish oil tablets 1000 mg a day. 3. Multiple eye drops. 4. Aspirin 81 mg a day. The patient will be given Keflex 250 mg 3 times a day for 3 days. FOLLOWUP: The patient will see me in followup in 1 week. [id number]/[facility] #: [id number] [email or web address]
== END 2017-06-09 11:04 | disposition home or self-care (01) ==
LOC: CHICATH 11:21 → MEDTELE 14:20 → UNDOADMOB 14:52 → MEDTELE 14:52
PROVIDERS: ADMIT Specialist; ATTEND Specialist
DX: I44.1 Atrioventricular block, second degree (principal); R55 Syncope and collapse; Z79.82 Long term (current) use of aspirin; I48.91 Unspecified atrial fibrillation; I34.1 Nonrheumatic mitral (valve) prolapse; J31.0 Chronic rhinitis; L57.0 Actinic keratosis; E78.00 Pure hypercholesterolemia, unspecified
CPT/HCPCS: 33208; 71045; 71046; 93005; 96374; 99156; 99157; A9270-GY; C1785; C1898; G0378; J0690; J2250; J3010

== ENCOUNTER 2023-11-05 08:14 | Observation (INO) ==
[~2023-11-05 08:14] MED LIST: Dexamethasone IV 4 MG/ML VIAL 1 ml VIAL ONE; Lidocaine 2% PF 5 ML VIAL ONE; Midazolam 2 mg/2 ml VIAL 1 mg/ml 2 ml VIAL (2 mg) ONE; NS 0.45% 1000 ml BAG 1,000 ML IV SCH; Naloxone 0.4 mg VIAL 0.4 mg/ml 1 ml VIAL IV PRN; Ondansetron 4 mg VIAL 2 MG/ML 2 ml VIAL ONE; fentaNYL 250 mcg/5 ml 50 MCG/ML 5 ml VIAL (250 MCG) ONE
[2023-11-05] MEDS ORDERED: Tranexamic Acid 1 GM/100ML BAG 2,000 MG/200 ML BAG IV ONE (08:51)
[2023-11-05] MEDS ORDERED: ceFAZolin 2 GM in NS PREMIX 2 GM/100 ML BAG IVPB ONE (08:51)
[2023-11-05] MEDS: Lactated Ringers 1000 ml BAG 1,000 ML IV SCH ×2 (09:06→20:41)
[2023-11-05 09:41] LABS: Rapid COVID-19 Molecular Undetected (Undetected)
[2023-11-05] MEDS ORDERED: ROPIVACAINE 5 MG/ML 30 ML BTL (0.5%) ONE (10:22)
[2023-11-05] MEDS ORDERED: Propofol 10 MG/ML 20 ML BTL ONE ×2 (11:24→12:50)
[2023-11-05] MEDS ORDERED: Ondansetron ODT 4 mg TAB 4 MG TAB PO PRN (11:38)
[2023-11-05] MEDS ORDERED: Lactulose 30 ml UDC PO PRN (11:38)
[2023-11-05] MEDS ORDERED: Calcium Carb (TUMS) 500 mg CHEW TAB PO PRN (11:38)
[2023-11-05] MEDS ORDERED: Magnesium Hydroxide LIQ 30 ML UDC PO PRN (11:38)
[2023-11-05] MEDS ORDERED: Ondansetron 4 mg VIAL 2 MG/ML 2 ml VIAL IV PRN (11:38)
[2023-11-05] MEDS ORDERED: Morphine 2 MG/ML SYRINGE IV PRN (11:38)
[2023-11-05] MEDS ORDERED: fentaNYL 100 mcg/2 ml 50 MCG/ML VIAL ONE (14:05)
[2023-11-05] MEDS: fentaNYL 100 mcg/2 ml 50 MCG/ML VIAL IV PRN (14:08)
[2023-11-05] MEDS ORDERED: ceFAZolin 2 GM in NS PREMIX 2 GM/100 ML BAG IVPB SCH (20:00)
[2023-11-05] MEDS: Buffered Lidocaine 1% SYRIN 1 ml INTRADERM ONE (20:40)
[2023-11-05] MEDS: Acetaminophen IV 1 GM/100ML 1,000 MG/100 ML BAG IV ONE (20:40)
[2023-11-05] MEDS: ceFAZolin 2 GM PREMIX 2 GM/50 ML BAG IVPB SCH (20:50)
[2023-11-05] MEDS: Magnesium Hydroxide LIQ 30 ML UDC PO SCH (20:51)
[2023-11-06 06:50] LABS: Hematocrit 32.1 % (35-45); Hemoglobin 11.3 g/dL (11.5-14.3); Mean Platelet Volume 7.5 fL (7.5-11.2); Platelet Count 211 10^3/uL (150-450)
[2023-11-06 07:09] LABS: Calcium 8.6 mg/dL (8.6-10.3); Creatinine, Serum 0.74 mg/dL (0.51-0.95); Potassium 4.5 mmol/L (3.5-5.0); eGFR CKD-EPI 81.2 (>60)
[2023-11-06] MEDS: Vitamin THERAPEUTIC TAB PO SCH (07:52)
[2023-11-06 10:55] VITALS: BP 110/61
== END 2023-11-06 14:00 | disposition home or self-care (01) ==
LOC: SSU 08:14 → OR 08:14
PROVIDERS: ADMIT Orthopaedic Surgery Adult Reconstructive Orthopaedic Surgery; ATTEND Orthopaedic Surgery Adult Reconstructive Orthopaedic Surgery

== ENCOUNTER 2023-11-13 10:27 | Inpatient (IN) ==
[2023-11-13 12:45] LABS: Hematocrit 43.6 % (35-45); Hemoglobin 14.9 g/dL (11.5-14.3); Mean Corpuscular Hemoglobin 33.1 pg (27-33); Mean Corpuscular Hgb Conc 34.3 g/dL (31-36); Mean Corpuscular Volume 96.4 fL (80-97); Mean Platelet Volume 6.9 fL (7.5-11.2); Platelet Count 441 10^3/uL (150-450); Red Blood Count 4.52 10^6/uL (3.63-4.92); Red Cell Distribution Width 13.9 % (12-17); White Blood Count 14.7 10^3/uL (3.8-11.8)
[2023-11-13 13:00] LABS: INR 1.57 (0.83-1.13)
[2023-11-13 13:28] LABS: ALT 16 U/L (7-52); AST 20 U/L (13-39); Albumin 3.2 g/dL (3.2-5.2); Albumin/Globulin Ratio 1.5 (1-3); Alkaline Phosphatase 84 U/L (35-149); Anion Gap 7 mmol/L (2-16); Blood Urea Nitrogen 25 mg/dL (6-24); CO2 Carbon Dioxide 26 mmol/L (22-32); Calcium 8.8 mg/dL (8.6-10.3); Chloride 92 mmol/L (101-111); Creatinine, Serum 0.85 mg/dL (0.51-0.95); Globulin 2.1 g/dL (2-4); Glucose 118 mg/dL (70-100); Magnesium 2.2 mg/dL (1.9-2.7); Potassium 5.1 mmol/L (3.5-5.0); Sodium 125 mmol/L (135-145); Total Bilirubin 0.9 mg/dL (0.2-1.0); Total Protein 5.3 g/dL (6.4-8.9); eGFR CKD-EPI 68.8 (>60)
[2023-11-13 13:35] LABS: CRP High Sensitivity > 80.00 mg/L (<2.00)
[2023-11-13 13:42] LABS: TSH Ultra Thyroid Stim Horm 3.13 mcIU/mL (0.34-5.60)
[2023-11-13 13:53] LABS: ABS Eosinophils 0.1 10^3/uL (0.0-0.5); ABS Lymphocytes 1.5 10^3/uL (1.0-4.8); ABS Monocytes 1.2 10^3/uL (0.0-0.9); ABS Neutrophils 11.9 10^3/uL (1.5-7.6); ABS Nucleated RBC 0.01 10^3/ul; Eosinophil % 0.5 %; Lymphocyte % 10.1 %; Nucleated Red Blood Cells % 0.1 %/100WBC (0.0-0.8)
[2023-11-13] MEDS: NS 0.9% 1000 ml BAG 1,000 ML IV ONE (14:12)
[2023-11-13 14:46] LABS: Urine Appearance Turbid; Urine Bilirubin Negative (Negative); Urine Blood 2+ (Negative); Urine Color Yellow; Urine Glucose Negative (Negative); Urine Ketones Negative (Negative); Urine Nitrite Negative (Negative); Urine Protein Trace (Negative); Urine Specific Gravity 1.022 (1.002-1.030); Urine Urobilinogen Negative (Negative); Urine pH 5.5 (5.0-8.0)
[2023-11-13 14:51] LABS: Urine Bacteria 1+ /HPF (Absent); Urine Red Blood Cell 3+(>10/hpf) /HPF (0-Trace); Urine White Blood Cell 3+(>20/hpf) /HPF (0-Trace)
[2023-11-13] MEDS: cefTRIAXone 1 gm/50 mL D5W 1 GM/50 ML BAG IV ONE (15:36)
[2023-11-13 16:44] LABS: Osmolality Serum 271 mOsm/kg (275-295)
[2023-11-13] MEDS ORDERED: Polyethylene Glycol 3350 17 GM PACKET PO PRN (19:53)
[2023-11-13 23:01] LABS: Calcium 8.2 mg/dL (8.6-10.3); Creatinine, Serum 0.89 mg/dL (0.51-0.95); Potassium 4.7 mmol/L (3.5-5.0); eGFR CKD-EPI 65.1 (>60)
[2023-11-14 08:54] LABS: Hemoglobin 13.6 g/dL (11.5-14.3); Mean Corpuscular Hemoglobin 33.1 pg (27-33); Mean Corpuscular Hgb Conc 34.1 g/dL (31-36); Mean Corpuscular Volume 97.3 fL (80-97); Mean Platelet Volume 6.6 fL (7.5-11.2); Platelet Count 385 10^3/uL (150-450); Red Blood Count 4.11 10^6/uL (3.63-4.92); Red Cell Distribution Width 13.6 % (12-17); White Blood Count 12.4 10^3/uL (3.8-11.8)
[2023-11-14 09:12] LABS: Calcium 8.4 mg/dL (8.6-10.3); Creatinine, Serum 0.76 mg/dL (0.51-0.95); Potassium 4.8 mmol/L (3.5-5.0); eGFR CKD-EPI 78.7 (>60)
[2023-11-14] MEDS: cefTRIAXone 1 gm/50 mL D5W 1 GM/50 ML BAG IV SCH (15:38)
[2023-11-15 06:34] LABS: Hematocrit 39.7 % (35-45); Hemoglobin 13.1 g/dL (11.5-14.3); Mean Corpuscular Hemoglobin 32.4 pg (27-33); Mean Corpuscular Hgb Conc 33.1 g/dL (31-36); Mean Corpuscular Volume 97.8 fL (80-97); Mean Platelet Volume 6.5 fL (7.5-11.2); Platelet Count 415 10^3/uL (150-450); Red Blood Count 4.06 10^6/uL (3.63-4.92); Red Cell Distribution Width 13.7 % (12-17); White Blood Count 12.8 10^3/uL (3.8-11.8)
[2023-11-15 06:51] LABS: Calcium 8.3 mg/dL (8.6-10.3); Creatinine, Serum 0.79 mg/dL (0.51-0.95); Potassium 4.7 mmol/L (3.5-5.0); eGFR CKD-EPI 75.1 (>60)
[2023-11-15 06:59] LABS: ABS Basophils 0.1 10^3/uL (0.0-0.1); ABS Eosinophils 0.1 10^3/uL (0.0-0.5); ABS Lymphocytes 1.8 10^3/uL (1.0-4.8); ABS Monocytes 1.4 10^3/uL (0.0-0.9); ABS Neutrophils 9.4 10^3/uL (1.5-7.6); ABS Nucleated RBC 0.01 10^3/ul; Eosinophil % 0.8 %; Lymphocyte % 13.8 %; Nucleated Red Blood Cells % 0.1 %/100WBC (0.0-0.8)
[2023-11-15 07:00] LABS: RBC Morphology Normal (Normal)
[2023-11-15] MEDS: Polyethylene Glycol 3350 17 GM PACKET PO SCH (09:57)
[2023-11-15] MEDS: PEG 3000 GI LAVAGE 1 GALLON PO ONE (14:45)
[2023-11-15] MEDS: Senna TAB 8.6 mg TAB PO PRN (21:21)
[2023-11-15] MEDS: Magnesium Hydroxide LIQ 30 ML UDC PO PRN (21:22)
[2023-11-16 04:50] LABS: Hematocrit 39.8 % (35-45); Hemoglobin 13.7 g/dL (11.5-14.3); Mean Corpuscular Hemoglobin 33.5 pg (27-33); Mean Corpuscular Hgb Conc 34.5 g/dL (31-36); Mean Corpuscular Volume 97.3 fL (80-97); Mean Platelet Volume 6.5 fL (7.5-11.2); Platelet Count 414 10^3/uL (150-450); Red Blood Count 4.09 10^6/uL (3.63-4.92); Red Cell Distribution Width 13.6 % (12-17); White Blood Count 13.3 10^3/uL (3.8-11.8)
[2023-11-16 05:17] LABS: Calcium 8.1 mg/dL (8.6-10.3); Creatinine, Serum 0.74 mg/dL (0.51-0.95); Potassium 4.3 mmol/L (3.5-5.0); eGFR CKD-EPI 81.2 (>60)
[2023-11-16 06:13] LABS: ABS Basophils 0.1 10^3/uL (0.0-0.1); ABS Eosinophils 0.1 10^3/uL (0.0-0.5); ABS Lymphocytes 1.8 10^3/uL (1.0-4.8); ABS Monocytes 1.4 10^3/uL (0.0-0.9); ABS Neutrophils 9.9 10^3/uL (1.5-7.6); Eosinophil % 0.7 %; Lymphocyte % 13.4 %
[2023-11-16] MEDS: Lactated Ringers 1000 ml BAG 1,000 ML IV SCH ×2 (11:58→14:41)
[2023-11-16] MEDS: Lactated Ringers 1000 ml BAG 500 ML IV ONE (12:14)
[2023-11-16] MEDS: Metoprolol Tartrate 5 mg VIAL 5 ml VIAL (1 mg/ml) IV ONE (13:33)
[2023-11-16] MEDS: Digoxin IV 0.5 MG/2 ML AMP (0.25 MG/ML) IV SLOW PU ONE (15:20)
[2023-11-17 07:39] LABS: Hematocrit 33.5 % (35-45); Hemoglobin 12.1 g/dL (11.5-14.3); Mean Corpuscular Hemoglobin 34.8 pg (27-33); Mean Corpuscular Volume 96.6 fL (80-97); Mean Platelet Volume 6.7 fL (7.5-11.2); Platelet Count 394 10^3/uL (150-450); Red Blood Count 3.47 10^6/uL (3.63-4.92); Red Cell Distribution Width 13.5 % (12-17); White Blood Count 9.4 10^3/uL (3.8-11.8)
[2023-11-17 07:56] LABS: Calcium 8.1 mg/dL (8.6-10.3); Creatinine, Serum 0.69 mg/dL (0.51-0.95); Magnesium 2.2 mg/dL (1.9-2.7); Potassium 4.6 mmol/L (3.5-5.0); eGFR CKD-EPI 87.1 (>60)
[2023-11-17 08:32] LABS: ABS Eosinophils 0.1 10^3/uL (0.0-0.5); ABS Lymphocytes 1.5 10^3/uL (1.0-4.8); ABS Monocytes 1.1 10^3/uL (0.0-0.9); ABS Neutrophils 6.6 10^3/uL (1.5-7.6); ABS Nucleated RBC 0.03 10^3/ul; Eosinophil % 1.4 %; Lymphocyte % 16.3 %; Nucleated Red Blood Cells % 0.3 %/100WBC (0.0-0.8); RBC Morphology Normal (Normal)
[2023-11-17] MEDS ORDERED: fentaNYL 100 mcg/2 ml 50 MCG/ML VIAL ONE (09:33)
[2023-11-17] MEDS ORDERED: Midazolam 5 mg/5 ml VIAL 1 mg/ml 5 ml VIAL (5 mg) ONE (09:34)
[2023-11-17] MEDS: fentaNYL 100 mcg/2 ml 50 MCG/ML VIAL IV SLOW PU ONE (11:48)
[2023-11-17] MEDS: Midazolam 10 mg/10 ml VIAL 1 mg/ml 10 ml VIAL (10 mg) IV SLOW PU ONE (11:49)
[2023-11-17 15:40] VITALS: BP 111/52
== END 2023-11-17 17:30 | disposition home or self-care (01) | DRG 699 ==
LOC: ED 10:27 → EDHOLD 10:27 → SUATTDRO 16:20 → MEDTELE 19:43
PROVIDERS: ADMIT Internal Medicine; ATTEND Internal Medicine
PROC: CARDVER (ICD-10-PCS; 2023-11-17 11:15)